=== PATIENT | female | born 1935 | race African-American/Black ===

== ENCOUNTER 2020-07-13 14:47 | Observation (INO) | payer MEDICARE, OTHER ==
[~2020-07-13] VITALS: Ht 154.9 cm; Wt 76.4 kg
[2020-07-13 16:23] LABS: HEMOGLOBIN 12.9 g/dL (12.0-15.5); RED BLOOD COUNT 3.74 x10^6/uL (3.50-5.40); WHITE BLOOD COUNT 4.5 x10^3/uL (4.0-11.0)
[2020-07-13 16:31] LABS: CALCIUM 9.3 mg/dL (8.5-10.1); GFR 64.2; POTASSIUM 3.9 mmol/L (3.5-5.1)
[2020-07-13 16:36] LABS: PROTHROMBIN TIME PATIENT 12.9 SEC (11.7-14.0)
--- NOTE | 2020-07-13 16:40 | RAD ---
EXAM: CT Head without IV contrast INDICATION: Reason: LEFT SIDED FACIAL DROOP / Spl. Instructions: / History: TECHNIQUE: Multi-detector row CT images were obtained of the head without the use of IV contrast. All CT scans performed at this facility utilize dose optimization techniques as appropriate to the exam, including the following: Automated exposure control and adjustment of the mA and/or KV according to patient size (this includes techniques or standardized protocols for targeted exams where dose is ind ication/reason for exam). COMPARISON: Noncontrast head CT of 05/07/2010 FINDINGS: BRAIN PARENCHYMA: No evidence of acute intraparenchymal hemorrhage or infarct. Mild generalized paren chymal volume loss and white matter low density compatible with chronic ischemic microvascular change is present. Tiny lucencies in the sherrell, bilateral basal ganglia, and left thalamus are present, comp atible with multiple chronic lacunar infarcts. VENTRICLES & EXTRA-AXIAL SPACES: Ventricles are enlarged in proportion to the degree of parenchymal volume loss present. The subarachnoid hemorrhage evident previously has since resolved.. Basilar cist erns are patent. No pathologic extra-axial fluid collection or mass. ORBITS: Orbital contents are unremarkable. SINUSES: Visualized paranasal sinuses and mastoid air cells are clear. OSSEOUS & SOFT TISSUES: Calvarium and skull base are intact. IMPRESSION: Atrophy, chronic ischemic microvascular changes, and chronic lacunar infarcts. No acute intracranial pathology. EXAM: XR CHEST 1V INDICATION: Reason: LEFT SIDED FACIAL DROOP / Spl. Instructions: / History: . TECHNIQUE: Single view COMPARISON: None FINDINGS: The heart size is upper normal. The great vessels appear unremarkable. There is no hilar or mediastinal mass. The lungs are clear. There is no pleural effusion or pneumothorax. There are no significant osseous abnormalities. IMPRESSION: Upper normal heart size with no superimposed active cardiopulmonary disease. Electronically signed by: Candace Sarmiento MD (07/13/2020 4:38 PM) [id number]
[2020-07-13] MEDS ORDERED: NAPR-514 PO (17:21)
[2020-07-13] MEDS ORDERED: CARB100T4 PO (17:21)
[2020-07-13] MEDS ORDERED: LISI-334 PO (17:21)
[2020-07-13] MEDS ORDERED: GABA300C9 PO (17:21)
[2020-07-13] MEDS ORDERED: LEVO75TA5 PO (17:21)
--- NOTE | 2020-07-13 17:59 | PHYS DOC ---
Past Medical History Past Medical History: Hypertension Additional Past Medical Histor: "STATES HX CVA SAYS KU" Past Surgical History: No Surgical History Smoking Status: Current Every Day Smoker Alcohol Use: Occasionally General Adult EDM: Chief Complaint: NEURO SYMPTOMS/DEFICITS HPI: HPI: Patient is a 84 year old female presents to the emergency room. Patient states she was sent here by her family members because she had some facial droop that started about 4 to 5 days ago. Granddaughter stated at bedside states that she last seen her normal 3 weeks ago. Patient states that she was talking to her son on the phone 4 or 5 days ago and he noticed that she was having some slurred speech. Patient states that she noticed a left-sided facial droop over the weekend. Patient denies headache, denies recent fever or chills, denies chest pain, denies shortness of breath, denies congestion. Patient denies any recent trauma. Patient denies any hearing loss or hearing changes, patient denies any loss of taste or loss of smell. Patient denies sore throat. Patient does states she has a history of trigeminal neuralgia however denies any trigeminal neuralgia nerve pain. Patient states she takes lisinopril, Tegretol, gabapentin, and levothyroxine at home. Patient denies any other physical symptoms or physical complaints. Patient states that she drinks Param nightly, smokes a pack cigarettes a day, smokes marijuana occasionally. Review of Systems: Review of Systems: 14 body systems of review of systems have been reviewed. See HPI for pertinent positives and negative responses, otherwise all other systems are negative, nonpertinent or noncontributory. Heart Score: Risk Factors: Risk Factors: DM, Current or recent (<one month) smoker, HTN, HLP, family history of CAD, obesity. Risk Scores: Score 0 - 3: 2.5% MACE over next 6 weeks - Discharge Home Score 4 - 6: 20.3% MACE over next 6 weeks - Admit for Clinical Observation Score 7 - 10: 72.7% MACE over next 6 weeks - Early Invasive Strategies Allergies: Allergies: Allergies Coded Allergies Type Severity Reaction Last Updated Verified No Known Drug Allergies 10/04/15 No Physical Exam: PE: Constitutional: Well developed, well nourished, no acute distress, non-toxic appearance. HENT: Normocephalic, atraumatic, bilateral external ears normal, oropharynx moist, no oral exudates, nose normal. Eyes: PERRLA, EOMI, conjunctiva normal, no discharge. Neck: Normal range of motion, no tenderness, supple, no stridor. Cardiovascular:Heart rate regular rhythm, no murmur, heart sounds S1-S2 consultation. Lungs & Thorax: Bilateral breath sounds clear to auscultation all lung tierney. Abdomen: Bowel sounds normal, soft, no tenderness, no masses, no pulsatile masses. Skin: Warm, dry, no erythema, no rash. Back: No tenderness, no CVA tenderness. Extremities: No tenderness, no cyanosis, no clubbing, ROM intact, no edema. Neurologic: Alert and oriented X 3, normal motor function, normal sensory function, no focal deficits noted. Except for left-sided facial droop, no hyperacusis elicited, please see NIHSS stroke scale. Psychologic: Affect normal, judgement normal, mood normal. Current Patient Data: Labs: Laboratory Tests Test 07/13/20 14:56 07/13/20 15:00 Glucose (Fingerstick) 108 mg/dL (70-99) H White Blood Count 4.5 x10^3/uL (4.0-11.0) Red Blood Count 3.74 x10^6/uL (3.50-5.40) Hemoglobin 12.9 g/dL (12.0-15.5) Hematocrit 38.0 % (36.0-47.0) Mean Corpuscular Volume 102 fL (79-100) H Mean Corpuscular Hemoglobin 35 pg (25-35) Mean Corpuscular Hemoglobin Concent 34 g/dL (31-37) Red Cell Distribution Width 15.0 % (11.5-14.5) H Platelet Count 240 x10^3/uL (140-400) Prothrombin Time 12.9 SEC (11.7-14.0) Prothrombin Time INR 1.0 (0.8-1.1) Activated Partial Thromboplast Time 32 SEC (24-38) Sodium Level 140 mmol/L (136-145) Potassium Level 3.9 mmol/L (3.5-5.1) Chloride Level 104 mmol/L (98-107) Carbon Dioxide Level 28 mmol/L (21-32) Anion Gap 8 (6-14) Blood Urea Nitrogen 15 mg/dL (7-20) Creatinine 1.0 mg/dL (0.6-1.0) Estimated GFR (Cockcroft-Gault) 64.2 Glucose Level 90 mg/dL (70-99) Calcium Level 9.3 mg/dL (8.5-10.1) Laboratory Tests 07/13/20 15:00 Laboratory Tests 07/13/20 15:00 Vital Signs: Vital Signs Date Time Temp Pulse Resp B/P (MAP) Pulse Ox O2 Delivery O2 Flow Rate FiO2 07/13/20 15:29 71 150/76 (100) 94 07/13/20 15:06 98.1 18 Room Air 98.1 EKG: EKG: [] Radiology/Procedures: Radiology/Procedures: SEX: F EXAM STATUS: REG ER ORD. PHYSICIAN: GERRI MCELROY APRN REASON: LEFT SIDED FACIAL DROOP PROCEDURE: CT HEAD WO CONTRAST EXAM: CT Head without IV contrast INDICATION: Reason: LEFT SIDED FACIAL DROOP / Spl. Instructions: / History: TECHNIQUE: Multi-detector row CT images were obtained of the head without the use of IV contrast. All CT scans performed at this facility utilize dose optimization techniques as appropriate to the exam, including the following: Aut omated exposure control and adjustment of the mA and/or KV according to patient size (this includes techniques or standardized protocols for targeted exams where dose is indication/reason for exam). COMPARISON: Noncontrast head CT of 05/07/2010 FINDINGS: BRAIN PARENCHYMA: No evidence of acute intraparenchymal hemorrhage or infarct. Mild generalized parenchymal volume loss and white matter low density compatible with chronic ischemic microvascular change is present. Tiny lucencies in the sherrell, bilateral basal ganglia, and left thalamus are present, compatible with multiple chronic lacunar infarcts. VENTRICLES & EXTRA-AXIAL SPACES: Ventricles are enlarged in proportion to the degree of parenchymal volume loss present. The subarachnoid hemorrhage evident previously has since resolved.. Basilar cisterns are patent. No pathologic extra-axial fluid collection or mass. ORBITS: Orbital contents are unremarkable. SINUSES: Visualized paranasal sinuses and mastoid air cells are clear. OSSEOUS & SOFT TISSUES: Calvarium and skull base are intact. IMPRESSION: Atrophy, chronic ischemic microvascular changes, and chronic lacunar infarcts. No acute intracranial pathology. EXAM: XR CHEST 1V INDICATION: Reason: LEFT SIDED FACIAL DROOP / Spl. Instructions: / History: . TECHNIQUE: Single view COMPARISON: None FINDINGS: The heart size is upper normal. The great vessels appear unremarkable. There is no hilar or mediastinal mass. The lungs are clear. There is no pleural effusion or pneumothorax. There are no significant osseous abnormalities. IMPRESSION: Upper normal heart size with no superimposed active cardiopulmonary disease. Electronically signed by: Ana Cristina Sarmiento MD (07/13/2020 4:38 PM) [id number] DICTATED and SIGNED BY: ANA CRISTINA SARMIENTO MD DATE: 07/13/20 [id number] 0 Course & Med Decision Making: Course & Med Decision Making Pertinent Labs and Imaging studies reviewed. (See chart for details) 84-year-old female, vital signs stable, sent to the emergency department with signs and symptoms concerning for CVA. Code stroke not initiated related to CVA symptoms starting approximately 4 to [address] negative for acute hemorrhagic stroke, discussed case with [facility] physician Dr. Doherty who agreed to accept patient under admission to the [facility] unit for CVA. Discussed admission with patient who was amendable to this plan. Discussed case with neurologist Dr. Horn. Patient admitted to [facility] floor, Dr. Doherty assume patient care. Dragon Disclaimer: Dragon Disclaimer: This electronic medical record was generated, in whole or in part, using a voice recognition dictation system. Departure Departure Impression: Primary Impression: CVA (cerebral vascular accident) Qualified Codes: I63.9 - Cerebral infarction, unspecified Disposition: 09 ADMITTED INPT THIS HOSP Admitting Physician: [facility] ([facility] to [facility]) Condition: GUARDED Referrals: UNKNOWN PCP NAME (PCP) NIHSS Stroke Scale NIH Stroke Scale: NIH Stroke Scale Response (Comments) Value Level of Consciousness: 0 Alert/Responsive 0 LOC Questions: 0 Answers both correctly 0 LOC Commands: 0 Performs both tasks 0 Best Gaze: 0 Normal 0 Visual: 0 No visual loss 0 Facial Palsy: 3 Complete paralysis 3 Motor - Left Arm 0 No drift 0 Motor - Right Arm 0 No drift 0 Motor - Left Leg 0 No drift 0 Motor: Right Leg 0 No drift 0 Limb Ataxia: 0 Absent 0 Sensory: 0 No loss 0 Best Language: 1 Mild to mod aphasia 1 Dysathria: 1 Mild to moderate 1 Extinction and Inattention: 0 Normal 0 Total 5 GERRI MCELROY APRN Jul 13, 2020 17:59
[2020-07-13] MEDS ORDERED: ACETAMINOPHEN 325 MG TABLET. PO PRN (19:00)
[2020-07-13] MEDS ORDERED: ASPIRIN RECTAL 300 MG SUPP. PR PRN (19:00)
--- NOTE | 2020-07-13 19:54 | PDOC1 ---
History and Physical Date of Admission Date of Admission DATE: 07/13/20 TIME: 19:48 Source Source: Chart review, Patient History of Present Illness History of Present Illness MS. Lemos, is a 84 year old female admit from ER for facial numbness and weakness, Patient states she was sent here by her family members because she had some facial droop that started about 4 to 5 days ago. Granddaughter stated at bedside states that changes happened today only, and he had pictures from earlier today that look worse than Ms. Lemos does now with right eye swollen and closed appearance in a photo. The timeline from when she was normal is now variable per history. Patient states that she was talking to her son earlier, and he noticed that she was having some slurred speech. Patient states that she noticed a left-sided facial droop over the weekend. She had a prior stroke 10 years ago and went from here to [place] for rehab,. Patient does states she has a history of trigeminal neuralgia however denies any trigeminal neuralgia nerve pain. Past Medical History Cardiovascular: HTN Pulmonary: No pertinent hx CENTRAL NERVOUS SYSTEM: CVA GI: No pertinent hx Psych: No pertinent hx Musculoskeletal: low back pain Past Surgical History Past Surgical History: Other Family History Family History: No Significant Social History Smoke: <1 pack per day ALCOHOL: other (daily tequila) Drugs: None Current Problem List Problem List Problems Medical Problems: (1) CVA (cerebral vascular accident) Status: Acute Current Medications Current Medications Current Medications Acetaminophen (Tylenol) 650 mg PRN Q6HRS PRN PO MILD PAIN / TEMP > 100.3'F; Start 07/13/20 at 19:00 Aspirin (Ecotrin) 325 mg DAILYWBKFT PO ; Start 07/14/20 at 08:00 Aspirin (Aspirin Rectal Supp) 300 mg PRN DAILY PRN TN IF UNABLE TO TAKE PO; Start 07/13/20 at 19:00 Active Scripts Active Reported Levothyroxine Sodium 75 Mcg Tablet 1 Tab PO DAILY Lisinopril 20 Mg Tablet 1 Tab PO DAILY Carbamazepine 100 Mg Tab.chew 1 Tab PO BID Naproxen 500 Mg Tablet PO Gabapentin 300 Mg Capsule 1 Cap PO TID Allergies Allergies: Coded Allergies: No Known Drug Allergies (Unverified , 10/04/15) ROS General: YES: Fatigue; No: Chills, Night Sweats, Malaise, Appetite, Other PSYCHOLOGICAL ROS: YES: Anxiety, Irritablity; No: Behavioral Disorder, Concentration difficultie, Decreased libido, Depression, Disorientation, Hallucinations, Hostility, Memory difficulties, Mood Swings, Obsessive thoughts, Physical abuse, Sexual abuse, Sleep disturbances, Suicidal ideation, Other Eyes: No Blurry vision, No Decreased vision, No Double vision, No Dry eyes, No Excessive tearing, No Eye Pain, No Itchy Eyes, No Loss of vision, No Photophobia, No Scotomata, No Uses contacts, No Uses glasses, No Other HEENT: YES: Heacaches; No: Visual Changes, Hearing change, Nasal congestion, Nasal discharge, Oral lesions, Sinus pain, Sore Throat, Epistaxis, Sneezing, Snoring, Tinnitus, Vertigo, Vocal changes, Other Respiratory: No: Cough, Hemoptysis, Orthopnea, Pleuritic Pain, Shortness of breath, SOB with excertion, Sputum Changes, Stridor, Tachypnea, Wheezing, Other Cardiovascular: No Chest Pain, No Palpitations, No Orthopnea, No Paroxysmal Noc. Dyspnea, No Edema, No Lt Headedness, No Other Gastrointestinal: Yes Nausea; No Vomiting, No Abdominal Pain, No Diarrhea, No Constipation, No Melena, No Hematochezia, No Other Genitourinary: No Dysuria, No Frequency, No Incontinence, No Hematuria, No Retention, No Discharge, No Urgency, No Pain, No Flank Pain, No Other, No , No , No , No , No , No , No Musculoskeletal: Yes Joint Stiffness; No Gait Disturbance, No Joint Pain, No Joint Swelling, No Muscle Pain, No Muscular Weakness, No Pain In:, No Swelling In:, No Other Neurological: Yes Gait Disturbance (old person walk"); No Behavorial Changes, No Bowel/Bladder ControlChng, No Confusion, No Dizziness, No Headaches, No Impaired Coord/balance, No Memory Loss, No Numbness/Tingling, No Seizures, No Speech Problems, No Tremors, No Visual Changes, No Weakness, No Other Skin: No Dry Skin, No Eczema, No Hair Changes, No Lumps, No Mole Changes, No Mottling, No Nail Changes, No Pruritus, No Rash, No Skin Lesion Changes, No Other, No Acne Physical Exam General: Alert, Oriented X3, Cooperative, No acute distress HEENT: Atraumatic Lungs: Clear to auscultation Heart: S1S2 Abdomen: Normal bowel sounds, Soft Extremities: No clubbing, No cyanosis, No edema Skin: No significant lesion Neuro: Normal gait, Sensation intact, Cranial nerves 3-12 NL Vitals Vitals Vital Signs Date Time Temp Pulse Resp B/P (MAP) Pulse Ox O2 Delivery O2 Flow Rate FiO2 07/13/20 15:29 71 150/76 (100) 94 07/13/20 15:06 98.1 18 Room Air 98.1 Labs Labs Laboratory Tests Test 07/13/20 14:56 07/13/20 15:00 Glucose (Fingerstick) 108 mg/dL (70-99) White Blood Count 4.5 x10^3/uL (4.0-11.0) Red Blood Count 3.74 x10^6/uL (3.50-5.40) Hemoglobin 12.9 g/dL (12.0-15.5) Hematocrit 38.0 % (36.0-47.0) Mean Corpuscular Volume 102 fL (79-100) Mean Corpuscular Hemoglobin 35 pg (25-35) Mean Corpuscular Hemoglobin Concent 34 g/dL (31-37) Red Cell Distribution Width 15.0 % (11.5-14.5) Platelet Count 240 x10^3/uL (140-400) Prothrombin Time 12.9 SEC (11.7-14.0) Prothromb Time International Ratio 1.0 (0.8-1.1) Activated Partial Thromboplast Time 32 SEC (24-38) Sodium Level 140 mmol/L (136-145) Potassium Level 3.9 mmol/L (3.5-5.1) Chloride Level 104 mmol/L (98-107) Carbon Dioxide Level 28 mmol/L (21-32) Anion Gap 8 (6-14) Blood Urea Nitrogen 15 mg/dL (7-20) Creatinine 1.0 mg/dL (0.6-1.0) Estimated GFR (Cockcroft-Gault) 64.2 Glucose Level 90 mg/dL (70-99) Calcium Level 9.3 mg/dL (8.5-10.1) Laboratory Tests Test 07/13/20 14:56 07/13/20 15:00 Glucose (Fingerstick) 108 mg/dL (70-99) White Blood Count 4.5 x10^3/uL (4.0-11.0) Red Blood Count 3.74 x10^6/uL (3.50-5.40) Hemoglobin 12.9 g/dL (12.0-15.5) Hematocrit 38.0 % (36.0-47.0) Mean Corpuscular Volume 102 fL (79-100) Mean Corpuscular Hemoglobin 35 pg (25-35) Mean Corpuscular Hemoglobin Concent 34 g/dL (31-37) Red Cell Distribution Width 15.0 % (11.5-14.5) Platelet Count 240 x10^3/uL (140-400) Prothrombin Time 12.9 SEC (11.7-14.0) Prothromb Time International Ratio 1.0 (0.8-1.1) Activated Partial Thromboplast Time 32 SEC (24-38) Sodium Level 140 mmol/L (136-145) Potassium Level 3.9 mmol/L (3.5-5.1) Chloride Level 104 mmol/L (98-107) Carbon Dioxide Level 28 mmol/L (21-32) Anion Gap 8 (6-14) Blood Urea Nitrogen 15 mg/dL (7-20) Creatinine 1.0 mg/dL (0.6-1.0) Estimated GFR (Cockcroft-Gault) 64.2 Glucose Level 90 mg/dL (70-99) Calcium Level 9.3 mg/dL (8.5-10.1) VTE Prophylaxis Ordered VTE Prophylaxis Devices: No VTE Pharmacological Prophylaxi: Yes Assessment/Plan Assessment/Plan RIght eye droop, today, earlier, maybe 12 hours, family had previously said days TIA, CT neg, Neuro consult, may need MRI Tobacco use disorder prior CVA, 10year ago, right facial nerve pain, on tegretol, htn, lisinopril, not compliant, EtOH use, < 2 per day per pt Justifications for Admission Other Justification SHELIA REHMAN MD Jul 13, 2020 19:54
[2020-07-13] MEDS ORDERED: NICOTINE 7MG PATCH. TD PRN (20:00)
[2020-07-13] MEDS ORDERED: ZOLPIDEM 5 MG TABLET. PO PRN (20:00)
[2020-07-13 20:12] VITALS: BP 175/75
[2020-07-13] MEDS: carBAMazepine 200 MG TABLET PO SCH (21:00)
[2020-07-13] MEDS ORDERED: NAPROXEN 500 MG TABLET PO PRN (21:00)
[2020-07-13] MEDS: GABAPENTIN 300 MG CAPSULE. PO SCH (21:03)
[2020-07-13 22:22] VITALS: BP 122/68
[2020-07-14 03:41] VITALS: BP 155/67
[2020-07-14 07:00] VITALS: BP 155/69
[2020-07-14] MEDS ORDERED: LEVOTHYROXINE 75 MCG TABLET PO SCH (07:00)
[2020-07-14 07:32] LABS: CHOLESTEROL/HDL RATIO 3.1
[2020-07-14] MEDS ORDERED: ASPIRIN ENTERIC COATED 325 MG TABLET.DR. PO SCH (08:00)
[2020-07-14] MEDS ORDERED: ENOXAPARIN 40 MG/0.4 ML SYRINGE. SQ SCH (09:00)
[2020-07-14] MEDS ORDERED: LISINOPRIL 20 MG TABLET PO SCH (09:00)
[2020-07-14] MEDS ORDERED: FLU VACC QS 2020-21(6MOS+)/PF 0.5 ML SYRINGE. VAX IM ONE (09:00)
[2020-07-14 10:56] VITALS: BP 164/69
[2020-07-14] MEDS: carBAMazepine 200 MG TABLET PO SCH (11:25)
[2020-07-14] MEDS: GABAPENTIN 300 MG CAPSULE. PO SCH ×2 (11:25→16:28)
--- NOTE | 2020-07-14 12:03 | PDOC2 ---
NEUROLOGY CONSULT Date of Service DOS: DATE: 07/14/20 TIME: 11:56 Reason for Consult Reason for Consult: Left facial weakness Referring Physician Referring Physician: Dr. Doherty Source Source: Chart review, Patient History of Present Illness History of Present Illness The patient is an 84-year-old right-handed female who 3 days ago noticed some feeling of swelling in her left lips, then a left facial droop. Symptoms persisted and the patient finally came to the emergency department at the insistence of her family yesterday. Now she is noticing some fullness in the left ear. She has never had a stroke, seizure, or head injury. She has some dysarthria, we are also worried about dysphagia, she denies vertigo, tinnitus, diplopia, or weakness or numbness in the limbs. She follows at regarding a right trigeminal neuralgia. 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) Family History Family History: No pertinent hx Social History Social History , rare alcohol, ex-smoker Current Medications Current Medications Current Medications Acetaminophen (Tylenol) 650 mg PRN Q6HRS PRN PO MILD PAIN / TEMP > 100.3'F; Start 07/13/20 at 19:00 Aspirin (Ecotrin) 325 mg DAILYWBKFT PO Last administered on 07/14/20at 07:02; Start 07/14/20 at 08:00 Aspirin (Aspirin Rectal Supp) 300 mg PRN DAILY PRN MA IF UNABLE TO TAKE PO; Start 07/13/20 at 19:00 Zolpidem Tartrate (Ambien) 5 mg PRN QHS PRN PO INSOMNIA Last administered on at 21:02; Start 07/13/20 at 20:00 Nicotine (Nicoderm Cq 7mg) 1 patch PRN DAILY PRN TD SMOKING CESSATION Last administered on 07/13/20at 21:08; Start 07/13/20 at 20:00 Enoxaparin Sodium (Lovenox Per Pharmacy Prophylaxis Dosing) 1 each PRN DAILY PRN MC SEE COMMENTS; Start 07/13/20 at 20:00 Enoxaparin Sodium (Lovenox 40mg Syringe) 40 mg DAILY SQ Last administered on 07/14/20at 09:57; Start 07/14/20 at 09:00 Gabapentin (Neurontin) 300 mg TID PO Last administered on 07/14/20at 11:25; Start 07/13/20 at 21:00 Levothyroxine Sodium (Synthroid) 75 mcg DAILY07 PO Last administered on 07/14/20at 07:01; Start 07/14/20 at 07:00 Lisinopril (Prinivil) 20 mg DAILY PO Last administered on 07/14/20at 11:25; Start 07/14/20 at 09:00 Naproxen (Naprosyn) 500 mg PRN DAILY PRN PO PAIN; Start 07/13/20 at 21:00 Carbamazepine (TEGretol) 100 mg BID PO Last administered on 07/14/20at 11:25; Start 07/13/20 at 21:00 Influenza Virus Vaccine Quadrival (Fluzone Quad Syringe) 0.5 ml ONCE ONCE VAX IM Last administered on 07/14/20at 10:04; Start 07/14/20 at 09:00; Stop 07/14/20 at 09:01; Status DC Active Scripts Active Reported Levothyroxine Sodium 75 Mcg Tablet 1 Tab PO DAILY Lisinopril 20 Mg Tablet 1 Tab PO DAILY Carbamazepine 100 Mg Tab.chew 1 Tab PO BID Naproxen 500 Mg Tablet 500 Mg PO PRN DAILY PRN Gabapentin 300 Mg Capsule 1 Cap PO TID Allergies Allergies: Coded Allergies: No Known Drug Allergies (Unverified , 10/04/15) ROS Review of System Negative for fever, chills, weight loss, shortness of breath, chest pain, indigestion, hematochezia, melena, and dysuria. Full 14-point review of systems is negative. Physical Exam Physical Examination General: Well-developed, well-nourished black female in no acute distress HEENT: Normocephalic andatraumatic. Tympanic membranes clear.Temporal arteriespulsatile and nontender. Neck: Supple without bruit, no meningismus Musculoskeletal: Stability:see neurologic. Gait exam:see neurologic. Tone:see neurologic.Strength:see neurologic. Neurological: Mental Status:intact, orientation, memory, attention span/concentration, language, fund of knowledge normal. Cranial Nerves:Pupils equal and reactive to light, extraocular movements areintact, visual tierney are full to confrontation. Facial sensation is normal. There is a left lower motor neuron facial weakness, there is definitely difficulty closing the left eye now. Vestibulo-ocular reflex is intact. Palate elevates and tongue protrudes in midline. All other cranial related problems are negative except as mentioned before.Reflexes:2+ and symmetric with flexor plantar responses. Motor:5/5 strength with normal tone and bulk. Coordination:Finger-nose finger and [id number] testing are normal. Rapid alternating movements and fine finger movements are intact. Gait:Apraxic, normally uses a walker at home. Sensory:Normal pinprick, vibration, light touch, proprioception. Vitals VITALS Vital Signs Date Time Temp Pulse Resp B/P (MAP) Pulse Ox O2 Delivery O2 Flow Rate FiO2 07/14/20 11:25 70 164/69 07/14/20 10:56 98.8 16 94 Room Air 98.8 Labs Labs Laboratory Tests Test 07/13/20 14:56 07/13/20 15:00 07/14/20 05:50 Glucose (Fingerstick) 108 mg/dL (70-99) White Blood Count 4.5 x10^3/uL (4.0-11.0) Red Blood Count 3.74 x10^6/uL (3.50-5.40) Hemoglobin 12.9 g/dL (12.0-15.5) Hematocrit 38.0 % (36.0-47.0) Mean Corpuscular Volume 102 fL (79-100) Mean Corpuscular Hemoglobin 35 pg (25-35) Mean Corpuscular Hemoglobin Concent 34 g/dL (31-37) Red Cell Distribution Width 15.0 % (11.5-14.5) Platelet Count 240 x10^3/uL (140-400) Prothrombin Time 12.9 SEC (11.7-14.0) Prothromb Time International Ratio 1.0 (0.8-1.1) Activated Partial Thromboplast Time 32 SEC (24-38) Sodium Level 140 mmol/L (136-145) Potassium Level 3.9 mmol/L (3.5-5.1) Chloride Level 104 mmol/L (98-107) Carbon Dioxide Level 28 mmol/L (21-32) Anion Gap 8 (6-14) Blood Urea Nitrogen 15 mg/dL (7-20) Creatinine 1.0 mg/dL (0.6-1.0) Estimated GFR (Cockcroft-Gault) 64.2 Glucose Level 90 mg/dL (70-99) Calcium Level 9.3 mg/dL (8.5-10.1) Triglycerides Level 120 mg/dL (0-150) Cholesterol Level 192 mg/dL (0-200) LDL Cholesterol, Calculated 106 mg/dL (0-100) VLDL Cholesterol, Calculated 24 mg/dL (0-40) Non-HDL Cholesterol Calculated 130 mg/dL (0-129) HDL Cholesterol 62 mg/dL (40-60) Cholesterol/HDL Ratio 3.1 Laboratory Tests Test 07/13/20 14:56 07/13/20 15:00 07/14/20 05:50 Glucose (Fingerstick) 108 mg/dL (70-99) White Blood Count 4.5 x10^3/uL (4.0-11.0) Red Blood Count 3.74 x10^6/uL (3.50-5.40) Hemoglobin 12.9 g/dL (12.0-15.5) Hematocrit 38.0 % (36.0-47.0) Mean Corpuscular Volume 102 fL (79-100) Mean Corpuscular Hemoglobin 35 pg (25-35) Mean Corpuscular Hemoglobin Concent 34 g/dL (31-37) Red Cell Distribution Width 15.0 % (11.5-14.5) Platelet Count 240 x10^3/uL (140-400) Prothrombin Time 12.9 SEC (11.7-14.0) Prothromb Time International Ratio 1.0 (0.8-1.1) Activated Partial Thromboplast Time 32 SEC (24-38) Sodium Level 140 mmol/L (136-145) Potassium Level 3.9 mmol/L (3.5-5.1) Chloride Level 104 mmol/L (98-107) Carbon Dioxide Level 28 mmol/L (21-32) Anion Gap 8 (6-14) Blood Urea Nitrogen 15 mg/dL (7-20) Creatinine 1.0 mg/dL (0.6-1.0) Estimated GFR (Cockcroft-Gault) 64.2 Glucose Level 90 mg/dL (70-99) Calcium Level 9.3 mg/dL (8.5-10.1) Triglycerides Level 120 mg/dL (0-150) Cholesterol Level 192 mg/dL (0-200) LDL Cholesterol, Calculated 106 mg/dL (0-100) VLDL Cholesterol, Calculated 24 mg/dL (0-40) Non-HDL Cholesterol Calculated 130 mg/dL (0-129) HDL Cholesterol 62 mg/dL (40-60) Cholesterol/HDL Ratio 3.[address] Head without IV contrast INDICATION: Reason: LEFT SIDED FACIAL DROOP / Spl. Instructions: / History: TECHNIQUE: Multi-detector row CT images were obtained of the head without the use of IV contrast. All CT scans performed at this facility utilize dose optimization techniques as appropriate to the exam, including the following: Automated exposure control and adjustment of the mA and/or KV according to patient size (this includes techniques or standardized protocols for targeted exams where dose is indication/reason for exam). COMPARISON: Noncontrast head CT of 05/07/2010 FINDINGS: BRAIN PARENCHYMA: No evidence of acute intraparenchymal hemorrhage or infarct. Mild generalized parenchymal volume loss and white matter low density compatible with chronic ischemic microvascular change is present. Tiny lucencies in the sherrell, bilateral basal ganglia, and left thalamus are present, compatible with multiple chronic lacunar infarcts. VENTRICLES & EXTRA-AXIAL SPACES: Ventricles are enlarged in proportion to the degree of parenchymal volume loss present. The subarachnoid hemorrhage evident previously has since resolved.. Basilar cisterns are patent. No pathologic extr a-axial fluid collection or mass. ORBITS: Orbital contents are unremarkable. SINUSES: Visualized paranasal sinuses and mastoid air cells are clear. OSSEOUS & SOFT TISSUES: Calvarium and skull base are intact. IMPRESSION: Atrophy, chronic ischemic microvascular changes, and chronic lacunar infarcts. No acute intracranial pathology. Assessment/Plan Assessment/Plan Impression: Left Lester's palsy,, Mr. Ngo felt that only the lower face is involved, now clearly the upper face is involved as well, furthermore now the patient is having the classic fullness in the ipsilateral ear. History of right trigeminal neuralgia. Hypertension Fairly favorable lipid profile Longstanding gait disorder Recommendations: MRI of the brain If this does not show a stroke, suggest a pulse of steroids, 40 mg today, 30 mg tomorrow, 20 mg on 07/16, 10 mg on 07/17, then stop. No need for further stroke work-up unless MRI is abnormal No need for statin unless MRI is abnormal Aim for discharge later today if MRI is normal. Fully discussed with patient and her daughter. Follow-up with neurology if facial palsy does not improve over the next few weeks. Thank you for letting me help with the patient's care. TREVA KHANNA MD Jul 14, 2020 12:03
[2020-07-14] MEDS ORDERED: PRED-220 PO (12:55)
--- NOTE | 2020-07-14 12:58 | PDOC3 ---
Discharge Summary Visit Information Date of Admission: Jul 13, 2020 Date of Discharge: Jul 14, 2020 Final Diagnosis presumed TIA on admit per Neuro eval, Left Lester's palsy,, History of right trigeminal neuralgia. Hypertension Longstanding gait disorder Problems Medical Problems: (1) CVA (cerebral vascular accident) Status: Acute Brief Hospital Course Allergies Allergies Coded Allergies Type Severity Reaction Last Updated Verified No Known Drug Allergies 10/04/15 No Vital Signs Vital Signs Date Time Temp Pulse Resp B/P (MAP) Pulse Ox O2 Delivery O2 Flow Rate FiO2 07/14/20 11:25 70 164/69 07/14/20 10:56 98.8 16 94 Room Air 98.8 Lab Results Laboratory Tests Test 07/13/20 14:56 07/13/20 15:00 07/14/20 05:50 Glucose (Fingerstick) 108 mg/dL (70-99) White Blood Count 4.5 x10^3/uL (4.0-11.0) Red Blood Count 3.74 x10^6/uL (3.50-5.40) Hemoglobin 12.9 g/dL (12.0-15.5) Hematocrit 38.0 % (36.0-47.0) Mean Corpuscular Volume 102 fL (79-100) Mean Corpuscular Hemoglobin 35 pg (25-35) Mean Corpuscular Hemoglobin Concent 34 g/dL (31-37) Red Cell Distribution Width 15.0 % (11.5-14.5) Platelet Count 240 x10^3/uL (140-400) Prothrombin Time 12.9 SEC (11.7-14.0) Prothromb Time International Ratio 1.0 (0.8-1.1) Activated Partial Thromboplast Time 32 SEC (24-38) Sodium Level 140 mmol/L (136-145) Potassium Level 3.9 mmol/L (3.5-5.1) Chloride Level 104 mmol/L (98-107) Carbon Dioxide Level 28 mmol/L (21-32) Anion Gap 8 (6-14) Blood Urea Nitrogen 15 mg/dL (7-20) Creatinine 1.0 mg/dL (0.6-1.0) Estimated GFR (Cockcroft-Gault) 64.2 Glucose Level 90 mg/dL (70-99) Calcium Level 9.3 mg/dL (8.5-10.1) Triglycerides Level 120 mg/dL (0-150) Cholesterol Level 192 mg/dL (0-200) LDL Cholesterol, Calculated 106 mg/dL (0-100) VLDL Cholesterol, Calculated 24 mg/dL (0-40) Non-HDL Cholesterol Calculated 130 mg/dL (0-129) HDL Cholesterol 62 mg/dL (40-60) Cholesterol/HDL Ratio 3.1 Laboratory Tests Test 07/13/20 14:56 07/13/20 15:00 07/14/20 05:50 Glucose (Fingerstick) 108 mg/dL (70-99) White Blood Count 4.5 x10^3/uL (4.0-11.0) Red Blood Count 3.74 x10^6/uL (3.50-5.40) Hemoglobin 12.9 g/dL (12.0-15.5) Hematocrit 38.0 % (36.0-47.0) Mean Corpuscular Volume 102 fL (79-100) Mean Corpuscular Hemoglobin 35 pg (25-35) Mean Corpuscular Hemoglobin Concent 34 g/dL (31-37) Red Cell Distribution Width 15.0 % (11.5-14.5) Platelet Count 240 x10^3/uL (140-400) Prothrombin Time 12.9 SEC (11.7-14.0) Prothromb Time International Ratio 1.0 (0.8-1.1) Activated Partial Thromboplast Time 32 SEC (24-38) Sodium Level 140 mmol/L (136-145) Potassium Level 3.9 mmol/L (3.5-5.1) Chloride Level 104 mmol/L (98-107) Carbon Dioxide Level 28 mmol/L (21-32) Anion Gap 8 (6-14) Blood Urea Nitrogen 15 mg/dL (7-20) Creatinine 1.0 mg/dL (0.6-1.0) Estimated GFR (Cockcroft-Gault) 64.2 Glucose Level 90 mg/dL (70-99) Calcium Level 9.3 mg/dL (8.5-10.1) Triglycerides Level 120 mg/dL (0-150) Cholesterol Level 192 mg/dL (0-200) LDL Cholesterol, Calculated 106 mg/dL (0-100) VLDL Cholesterol, Calculated 24 mg/dL (0-40) Non-HDL Cholesterol Calculated 130 mg/dL (0-129) HDL Cholesterol 62 mg/dL (40-60) Cholesterol/HDL Ratio 3.1 Brief Hospital Course Ms. Kruger is a 84 old admit with facial numbness, tingling, weakness, eye drop, some trouble talking, improved in ER. Neuro consult, eval , pending MRI of the brain if neg MRI, pulse of steroids, 40 mg today, 30 mg tomorrow, 20 mg on 07/16, 10 mg on 07/17, Follow-up with neurology if facial palsy does not improve over the next few weeks. Discharge Information Condition at Discharge: Improved Follow Up: Weeks Disposition/Orders: D/C to Home Scheduled Carbamazepine (Carbamazepine) 100 Mg Tab.chew, 1 TAB PO BID, (Reported) Entered as Reported by: YUMIKO DE LOS SANTOS on 07/13/201720 Last Action: Converted on 07/13/202048 by SHELIA REHMAN Gabapentin (Gabapentin) 300 Mg Capsule, 1 CAP PO TID, (Reported) Entered as Reported by: YUMIKO DE LOS SANTOS on 07/13/201720 Last Action: Continued on 07/13/202048 by SHELIA REHMAN Levothyroxine Sodium (Levothyroxine Sodium) 75 Mcg Tablet, 1 TAB PO DAILY, (Reported) Entered as Reported by: YUMIKO DE LOS SANTOS on 07/13/201720 Last Action: Continued on 07/13/202048 by SHELIA REHMAN Lisinopril (Lisinopril) 20 Mg Tablet, 1 TAB PO DAILY, (Reported) Entered as Reported by: YUMIKO DE LOS SANTOS on 07/13/201720 Last Action: Continued on 07/13/202048 by SHELIA REHMAN Prednisone (Prednisone ) 10 Mg Tablet, 10 MG PO UD for trigeminal nerve palsy, #10 Ref 0 Take 4 tablets by mouth daily for 1 day, then take 3 tablets by mouth daily for 1 day, then take 2 tablets by mouth daily for 1 day, then take 1 tablets by mouth daily for 1 day, then stop. Prescribed by: SHELIA REHMAN on 07/14/20 1255 Scheduled PRN Naproxen (Naproxen) 500 Mg Tablet, 500 MG PO PRN DAILY PRN for PAIN, (Reported) Entered as Reported by: YUMIKO DE LOS SANTOS on 07/13/201720 Last Action: Continued on 07/13/202048 by SHELIA ERHMAN Patient Instructions Patient Instructions face to face discussed plan > 30 min total time Justicifation of Admission Dx: Justifications for Admission: Justification of Admission Dx: No SHELIA REHMAN MD Jul 14, 2020 12:58
--- NOTE | 2020-07-14 13:33 | NUR ---
SS following for discharge planning. SS reviewed pt chart and discussed with pt RN. Pt is from home with family and is currently on room air. PT recommended home. Pt on regular diet. Discharge order on the chart for home with self care. Addendum: 07/14/20 at 1336 by PATRICIA BHAGAT CORRECTION TO NOTE: Pt lives at home alone.
[2020-07-14 14:36] VITALS: BP 144/61
--- NOTE | 2020-07-14 14:55 | EKG ---
[facility] [address] [place] [address] Test Date: 2020-07-13 Test Time: 15:04:20 Pat Name: VELASQUEZ WALLER Department: Room: Gender: F Departure Clerk: : [id number] Requested By: GERRI MCELROY Order Number: [id number] Reading MD: Measurements Intervals [place] Rate: 81 P: 29 NM: 152 QRS: 28 QRSD: 86 T: 40 QT: 408 QTc: 474 Interpretive Statements SINUS RHYTHM PROLONGED QT NO SPECIFIC ECG ABNORMALITIES RI6.01 No previous ECG available for comparison
--- NOTE | 2020-07-14 16:51 | RAD ---
MRI of the Brain without Contrast 07/14/2020 Clinical History: Left facial droop. Technique: Unenhanced T1-weighted sagittal and axial, T2-weighted axial and coronal, and FLAIR, gradi ent echo and diffusion-weighted axial images of the brain were obtained. Findings: Comparison is made to the patient's CT scan of the head dated 07/13/2020. There is generalized parenchymal atrophy. Patchy, confluent and multiple focal areas of abnormally in creased signal intensity are seen within the periventricular and subcortical white matter of both cer ebral hemispheres on the FLAIR and T2-weighted images consistent with areas of small vessel ischemic disease. Multiple old areas of lacunar infarction are seen involving the basal ganglia regions, the l eft and right thalamus and the sherrell which measure 3 to 7 mm in size. No acute parenchymal abnormality is seen. No extra-axial fluid collection is seen. There is no MRI ev idence of acute ischemia/infarction. The paranasal sinuses are essentially clear. Normal flow voids are seen within the major vascular str uctures surrounding the brain parenchyma. Impression: No acute parenchymal abnormality is seen. Electronically signed by: Pete Hanson MD (07/14/2020 4:49 PM) [id number]
[2020-07-14] MEDS ORDERED: predniSONE 20 MG TABLET PO ONE (17:00)
--- NOTE | 2020-07-14 19:30 | NUR ---
Discharge Note: VELASQUEZ WALLER [address] Discharge instructions and discharge home medications reviewed with Patient and a copy given. All questions have been answered and understanding verbalized. The following instructions and handouts were given: follow up with primary or Dr. Gottlieb. contact info given. medication and changes to condition. Discontinued lines and drains: IV removed. no lines present at discharge. Patient discharged to home. left by wheelchair to her daughters private vehicle.
== END 2020-07-14 18:00 | disposition home or self-care (01) ==
LOC: ER 14:47 → INTOOBSV 17:50 → 2 NORTH 17:50
PROVIDERS: ADMIT Internal Medicine; ATTEND Internal Medicine
DX: I63.9 Cerebral infarction, unspecified (principal); I10 Essential (primary) hypertension; M54.5 Low back pain; R79.1 Abnormal coagulation profile; F12.90 Cannabis use, unspecified, uncomplicated; F17.210 Nicotine dependence, cigarettes, uncomplicated; F41.9 Anxiety disorder, unspecified; R29.705 NIHSS score 5; Z79.82 Long term (current) use of aspirin; Z90.49 Acquired absence of other specified parts of digestive tract; Z98.890 Other specified postprocedural states; Z23 Encounter for immunization
CPT/HCPCS: 36415; 70450; 70551; 71045; 80048; 80061; 82962; 85027; 85610; 85730; 90471; 90686; 92610; 93005; 96372; 97116; 97161; 97165; 99285; G0378; J1650; J7512; G0379